=== PATIENT | male | born 1985 | race American Indian/Alaskan Native ===

== ENCOUNTER 2018-03-21 17:59 | Emergency (ER) | payer OTHER ==
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
[2018-03-22] MEDS ORDERED: ULTRAM PO ONE (01:11)
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
[2018-03-22 04:16] VITALS: BP 130/82
== END 2018-03-22 03:05 | disposition home or self-care (01) ==
LOC: ED 17:59
DX: S16.1XXA Strain of muscle, fascia and tendon at neck level, initial encounter (principal); S46.911A Strain of unspecified muscle, fascia and tendon at shoulder and upper arm level, right arm, initial encounter; F17.200 Nicotine dependence, unspecified, uncomplicated; V43.62XA Car passenger injured in collision with other type car in traffic accident, initial encounter; Y93.89 Activity, other specified; Y92.410 Unspecified street and highway as the place of occurrence of the external cause; Y99.8 Other external cause status
CPT/HCPCS: 72040; 99283

== ENCOUNTER 2022-01-10 08:37 | Emergency (ER) | payer OTHER ==
--- NOTE | 2022-01-10 09:52 | XRay Report ---
CHEST 2 VIEWS INDICATION / CLINICAL INFORMATION: chest pain. COMPARISON: None available. FINDINGS: SUPPORT DEVICES: None. HEART / MEDIASTINUM: No significant abnormality. LUNGS / PLEURA: No significant pulmonary or pleural abnormality. No pneumothorax. ADDITIONAL FINDINGS: No significant additional findings. IMPRESSION: 1. No acute findings. Signer Name: Jomar Coleman MD Signed: 01/10/2022 9:48 AM Workstation Name: [id number]
--- NOTE | 2022-01-10 14:21 | Emergency Department Report ---
- General Chief Complaint: Upper Respiratory Infection Stated Complaint: CHEST PAIN/SWEAT/COUGH Source: patient Mode of arrival: Ambulatory Limitations: No Limitations - History of Present Illness Initial Comments: 36-year-old male with no significant past medical history reports to the ER today with complaints of cough, nasal congestion since Friday. 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 Patient reports no chest pain, no shortness of breath. Reports chills but denies fever. Re ports taking ihjl-zlo-pyowudl medicine Robitussin for symptom relief 1 time only. No other acute symptoms reported. Patient reports doing a COVID test that was negative. - Related Data Home Medications Medication Instructions Recorded Confirmed Last Taken Divalproex Sodium [Depakote] 500 mg PO BID 08/30/15 08/30/15 08/16/15 Previous Rx's Medication Instructions Recorded Last Taken Type Azithromycin [Zithromax Z-LARA] 250 mg PO DAILY #1 pkg 08/30/15 Unknown Rx Loratadine (Nf) [Claritin] 10 mg PO DAILY #30 tablet 08/30/15 Unknown Rx Prednisone [predniSONE 10 mg 10 mg PO .TAPER #1 tab.ds.pk 08/30/15 Unknown Rx (6-Day Pack, 21 Tabs)] Promethazine /Codeine 5 ml PO Q6H PRN #150 ml 08/30/15 Unknown Rx [Phenergan/Codeine 6.25-10 mg/5 ml] Cyclobenzaprine [Flexeril] 10 mg PO BID PRN #20 tablet 03/22/18 Unknown Rx Menthol/Camphor [[place] 18 gm TP TID PRN #1 tube 03/22/18 Unknown Rx Ointment] Naproxen [Naprosyn] 500 mg PO BID PRN #30 tablet 03/22/18 Unknown Rx Benzonatate [Tessalon Perles] 100 mg PO Q8HR PRN 6 Days #18 cap 01/10/22 Unknown Rx Allergies Allergy/AdvReac Type Severity Reaction Status Date / Time No Known Allergies Allergy Unverified 08/30/15 12:48 ED Review of Systems ROS: Stated complaint: CHEST PAIN/SWEAT/COUGH Other details as noted in HPI Comment: All other systems reviewed and negative ENT: congestion Respiratory: cough. denies: shortness of breath, wheezing ED Past Medical Hx - Past Medical History Previous Medical History?: Yes Hx Seizures: Yes - Social History Smoking Status: Current Every Day Smoker Substance Use Type: None, Alcohol - Medications Home Medications: Home Medications Medication Instructions Recorded Confirmed Last Taken Type Azithromycin [Zithromax Z-LARA] 250 mg PO DAILY #1 pkg 08/30/15 Unknown Rx Divalproex Sodium [Depakote] 500 mg PO BID 08/30/15 08/30/15 08/16/15 History Loratadine (Nf) [Claritin] 10 mg PO DAILY #30 tablet 08/30/15 Unknown Rx Prednisone [predniSONE 10 mg 10 mg PO .TAPER #1 tab.ds.pk 08/30/15 Unknown Rx (6-Day Pack, 21 Tabs)] Promethazine /Codeine 5 ml PO Q6H PRN #150 ml 08/30/15 Unknown Rx [Phenergan/Codeine 6.25-10 mg/5 ml] Cyclobenzaprine [Flexeril] 10 mg PO BID PRN #20 tablet 03/22/18 Unknown Rx Menthol/Camphor [[place] 18 gm TP TID PRN #1 tube 03/22/18 Unknown Rx Ointment] Naproxen [Naprosyn] 500 mg PO BID PRN #30 tablet 03/22/18 Unknown Rx Benzonatate [Tessalon Perles] 100 mg PO Q8HR PRN 6 Days #18 cap 01/10/22 Unknown Rx ED Physical Exam - General Limitations: No Limitations General appearance: alert, in no apparent distress - Head Head exam: Present: atraumatic, normocephalic - Eye Eye exam: Present: normal appearance - ENT ENT exam: Present: mucous membranes moist - Neck Neck exam: Present: normal inspection - Respiratory Respiratory exam: Present: normal lung sounds bilaterally. Absent: respiratory distress - Cardiovascular Cardiovascular Exam: Present: regular rate, normal rhythm. Absent: systolic murmur, diastolic murmur, rubs, gallop - GI/Abdominal GI/Abdominal exam: Present: soft, normal bowel sounds - Rectal Rectal exam: Present: deferred - Extremities Exam Extremities exam: Present: normal inspection - Back Exam Back exam: Present: normal inspection - Neurological Exam Neurological exam: Present: alert, oriented X3 - Psychiatric Psychiatric exam: Present: normal affect, normal mood - Skin Skin exam: Present: warm, dry, intact, normal color. Absent: rash ED Course Vital Signs 01/10/22 01/10/22 09:19 14:10 Temperature 99.2 F Pulse Rate 98 H 95 H Respiratory 16 18 Rate Blood Pressure 145/103 141/92 [Left] O2 Sat by Pulse 94 95 Oximetry ED Medical Decision Making - Radiology Data [facility] [address] [place] [address] XRay Report Signed Patient: FORTINO FELIX MR#: [id number] : 1985 Acct:[id number] Age/Sex: 36 / M ADM Date: 01/10/22 Loc: ED Attending Dr: Ordering Physician: ED MD SANDY Date of Service: 01/10/22 Procedure(s): XR chest routine 2V Accession Number(s): [id number] cc: ED MD SANDY Fluoro Time In Minutes: CHEST 2 VIEWS INDICATION / CLINICAL INFORMATION: chest pain. COMPARISON: None available. FINDINGS: SUPPORT DEVICES: None. HEART / MEDIASTINUM: No significant abnormality. LUNGS / PLEURA: No significant pulmonary or pleural abnormality. No pneumothorax. ADDITIONAL FINDINGS: No significant additional findings. IMPRESSION: 1. No acute findings. 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 Patient reports having a negative COVID test. Chest x-ray is negative. Patient to be discharged home with oral cough medicine. Patient also encouraged to take [id number] Mucinex with pseudoephedrine. Patient agrees with plan of care and verbalized understanding. Patient informed to come back to the ER if symptoms were to get worse. Vital Signs 01/10/22 01/10/22 09:19 14:10 Temperature 99.2 F Pulse Rate 98 H 95 H Respiratory 16 18 Rate Blood Pressure 145/103 141/92 [Left] O2 Sat by Pulse 94 95 Oximetry Critical care attestation.: If time is entered above; I have spent that time in minutes in the direct care of this critically ill patient, excluding procedure time. ED Disposition Clinical Impression: Nasal congestion URI (upper respiratory infection) Qualifiers: URI type: unspecified viral URI Qualified Code(s): J06.9 - Acute upper respiratory infection, unspecified Cough Qualifiers: Cough type: acute Qualified Code(s): R05.1 - Acute cough Disposition: 01 HOME / SELF CARE / HOMELESS Is pt being admited?: No Condition: Stable Instructions: Cough, Adult, [id number], Viral Respiratory Infection, Gafw-Or-Wlfo, Cough, Adult Prescriptions: Benzonatate [Tessalon Perles] 100 mg PO Q8HR PRN 6 Days #18 cap PRN Reason: Cough Referrals: PRIMARY CARE, [Primary Care Provider] - 3-5 Days Forms: Work/School Release Form(ED)
[2022-01-10 14:40] VITALS: BP 141/92
== END 2022-01-10 14:20 | disposition home or self-care (01) ==
LOC: ED 08:37
DX: J06.9 Acute upper respiratory infection, unspecified (principal); R09.81 Nasal congestion; R05.9 Cough, unspecified; R56.9 Unspecified convulsions; F17.200 Nicotine dependence, unspecified, uncomplicated; Z79.899 Other long term (current) drug therapy
CPT/HCPCS: 71046; 99283